=== PATIENT | male | born 1975 | race Hispanic/Latino ===

== ENCOUNTER 2019-12-06 06:39 | Outpatient (CLI) | payer BC, SELFPAY ==
--- NOTE | ~2019-12-06 | MR_ITS ---
EXAMINATION: MR shoulder LT wo con DATE: 12/06/2019 07:36 INDICATION: Left shoulder impingement syndrome presenting with left shoulder pain. TECHNIQUE: Magnetic resonance imaging (MRI) of the left shoulder was performed without intravenous co ntrast. Sequences included axial PD-weighted FS FSE, coronal oblique PD-weighted FS FSE, coronal obli que T2-weighted FS FSE, sagittal PD-weighted FS FSE, and sagittal T1-weighted SE. COMPARISON: None. FINDINGS: Coracoacromial arch: The acromion undersurface is curved in morphology (type II) anterior and lateral downsloping. Additio n there is a small anterior subacromial spur at the acromial insertion of the normal coracoacromial l igament. Minimal acromioclavicular osteoarthritis with chondral fissuring and tiny subarticular cyst at the anterior lateral head of the clavicle. Rotator cuff: The supraspinatus, infraspinatus and teres minor tendons are normal. The subscapularis tendon is norm al. Normal rotator cuff muscle bulk and signal. Biceps tendon, glenoid labrum and glenohumeral cartilage: Long head of the biceps tendon is normal. Glenoid labrum is normal. Glenohumeral cartilage is normal. Fluid: Physiologic amount of fluid in the glenohumeral joint and biceps tendon sheath. No loose osteochondra l bodies. Mildly increased fluid signal at the subacromial bursa consistent with mild bursitis. Bones: Normal marrow signal with no edema, fracture or pathologic marrow replacing process. IMPRESSION: 1. Mild subacromial/subdeltoid bursitis. 2. Minimal acromioclavicular osteoarthritis. Reviewed, dictated and finalized at location A.
== END 2019-12-06 06:40 | disposition home or self-care (01) ==
LOC: ANHIMG 06:41
PROVIDERS: PCP Nurse Practitioner Family; Visit Provider Orthopaedic Surgery
DX: M75.42 Impingement syndrome of left shoulder (principal); M75.52 Bursitis of left shoulder; M19.012 Primary osteoarthritis, left shoulder
CPT/HCPCS: 73221

== ENCOUNTER 2019-12-29 08:31 | Outpatient (CLI) | payer BC, SELFPAY ==
[2019-12-29 09:01] LABS: Basophils Percent Auto 0.9 % (0.2-1.2); Eosinophils Absolute Auto 0.1 K/mm3 (0-0.3); Eosinophils Percent Auto 1.7 % (0-4.4); Hematocrit 46.2 % (42.0-52.0); Hemoglobin 15.4 g/dL (14.0-18.0); Immature Granulocyte Absolute 0.03 K/mm3 (0.00-0.031); Immature Granulocyte Percent A 0.6 % (0-0.5); Lymphocytes Absolute Auto 1.26 K/mm3 (0.9-3.2); Mean Corpuscular HGB Conc 33.3 g/dl (32-36); Mean Corpuscular Hemoglobin 30.4 pg (26-34); Mean Corpuscular Volume 91.1 fl (80-100); Mean Platelet Volume 10.4 fl (7.4-10.4); Monocytes Absolute Auto 0.4 K/mm3 (0.1-0.6); Monocytes Percent Auto 8.2 % (2.6-8.5); Neutrophils Absolute Auto 2.9 K/mm3 (1.3-6.7); Neutrophils Percent Auto 61.6 % (45.5-73.1); Platelet Count Result 251 k/mm3 (150-375); Red Blood Count 5.07 M/mm3 (4.6-6.20); Red Cell Distribution Width 12.5 % (11.5-14.5); White Blood Count 4.7 K/mm3 (4.5-10.0)
[2019-12-29 09:04] LABS: Add Urine Microscopic? NO; Appearance Urine Clear (Clear); Bilirubin Urine Negative (Negative); Blood Urine Negative (Negative); Color Urine Straw (Yellow); Glucose Urine UA Negative (Negative); Ketones Urine Negative (Negative); Leukocyte Esterase Ur Negative LEU/UL (Negative); Nitrate Urine Negative (Negative); Protein Urine Negative (Negative); Specific Grav Ur 1.013 (1.001-1.035); Urobilinogen Urine Negative mg/dL (<2.0)
[2019-12-29 09:09] LABS: Hemoglobin A1C 5.8 % (<5.7)
[2019-12-29 09:14] LABS: Alanine Aminotransferase 23 U/L (4-50); Albumin Level 4.7 g/dL (3.5-5.1); Alkaline Phosphatase 70 U/L (38-126); Aspartate Amino Transferase 34 U/L (17-59); Bilirubin,Total 0.7 mg/dL (0.2-1.3); Blood Urea Nitrogen 14 mg/dL (9-20); Carbon Dioxide 29 mmol/L (22-30); Chloride 103 mmol/L (98-107); Cholesterol 156 mg/dL (0-200); Estimated Glomerular Filt Rate > 60; Glucose 107 mg/dL (75-110); HDL Direct 70 mg/dL; Potassium 4.4 mmol/L (3.4-5.0); Sodium 138 mmol/L (137-145); Triglycerides 55 mg/dL (<150); Uric Acid 5.5 mg/dL (3.5-8.5)
[2019-12-29 09:25] LABS: LDL Cholesterol Direct 71 mg/dL
[2019-12-29 09:50] LABS: Vitamin D 25 Hydroxy 72.1 ng/mL
[2019-12-29 10:20] LABS: Folic Acid 11.9 ng/mL (2.76->20)
[2020-01-02 14:55] LABS: Testosterone Free 91.3 pg/mL (35.0-155.0); Testosterone Total 519 ng/dL (250-1100)
== END 2019-12-29 08:32 | disposition home or self-care (01) ==
LOC: ANHLAB 08:41
PROVIDERS: PCP Nurse Practitioner Family; Visit Provider Nurse Practitioner Family
DX: E55.9 Vitamin D deficiency, unspecified (principal); E29.1 Testicular hypofunction; R73.09 Other abnormal glucose; E53.8 Deficiency of other specified B group vitamins; Z13.29 Encounter for screening for other suspected endocrine disorder; Z13.21 Encounter for screening for nutritional disorder; Z13.228 Encounter for screening for other metabolic disorders; Z13.0 Encounter for screening for diseases of the blood and blood-forming organs and certain disorders involving the immune mechanism; R53.83 Other fatigue
CPT/HCPCS: 36415; 80053; 80061; 81003; 82306; 82607; 82746; 83036; 84402; 84403; 84443; 84550; 85025

== ENCOUNTER 2020-01-29 00:19 | Outpatient (CLI) | payer BC, SELFPAY | END 2020-01-29 00:20 | disposition home or self-care (01) | LOC: ANHCOVIDDT 00:19 | PROVIDERS: PCP Nurse Practitioner Family; Visit Provider Orthopaedic Surgery | DX: Z01.812 Encounter for preprocedural laboratory examination (principal); Z20.828 Contact with and (suspected) exposure to other viral communicable diseases | CPT/HCPCS: 87635; C9803; U0003 ==

== ENCOUNTER 2020-02-01 00:47 | Day surgery (SDC) | payer BC, SELFPAY ==
[2020-01-26 10:48] VITALS: BMI 28.8
[2020-02-01] VITALS (8 sets, daily range): BP systolic 109–123; BP diastolic 72–85; PULSE 57–71; RESP 12–20; TEMP 36.2–36.3; O2SAT 92–100
--- NOTE | 2020-02-01 07:57 | ECG_ITS ---
Measurements Intervals [place] Rate: 63 P: 47 [place]: 172 QRS: 66 QRSD: 98 T: 4 QT: 397 QTc: 407 Interpretive Statements SINUS RHYTHM MINIMAL Q WAVES- INFERIOR LEADS BORDERLINE ST-T WAVE ABNORMALITY- INFERIOR LEADS BORDERLINE ECG Electronically Signed On 02-01-2020 8:36:38 CDT by Madi Pearson D.O.
--- NOTE | 2020-02-01 09:07 | WPDANESEPPF ---
Anes - Initial Pre Proc Eval Procedure: Operation Date: 02/01/20 10:00 Proposed Procedures p Left Shoulder Arthroscopy With Subacromial Decompression - Matt Piedra MD Date/Time: 02/01/20 09:07 Surgeon: Matt Piedra MD Pre Op Diagnosis: left shoulder impingement syndrome Patient Data Age: 44 Gender: M Height: 5 ft 11 in Weight: 94.8 kg Last Vital Signs Temp 36.2 C L 02/01/20 08:02 Pulse 66 02/01/20 08:02 Resp 20 02/01/20 08:02 BP 112/75 02/01/20 08:02 Pulse Ox 100 02/01/20 08:02 Allergies Allergy/AdvReac Type Severity Reaction Status Date / Time No Known Allergies Allergy Unverified 02/01/20 08:29 Home Medications Medication Instructions Recorded Confirmed Type cholecalciferol (vitamin D3) 50,000 mcg PO WEEKLY 01/26/20 02/01/20 History [Vitamin D3] cyanocobalamin (vitamin B-12) 1,000 mcg MONTHLY 01/26/20 02/01/20 History garlic 1,000 mg PO DAILY 01/26/20 02/01/20 History green tea leaf extract [Green Tea] 1 cap PO DAILY 01/26/20 02/01/20 History testosterone cypionate 200 mg DAILY 01/26/20 02/01/20 History Patient hx anesthesia problems: none Family hx anesthesia problems: none [facility] Past Medical History Medical History Impingement syndrome, shoulder, left Family History Family History Sibling Family history of malignant neoplasm Social History Social History Smoking status: Former smoker Smoking end date: 09/15/16 Alcohol intake: current Anes - Eval Final PreProcedure Day of Procedure 02/01/20 09:07 Patient weight: overweight Heart: regular rate and rhythm Lungs: clear to auscultation Airway: Mallampati scale class II Neurological: alert and oriented Last oral intake: >/= 8 hours ASA classification: II Emergent: no Anesthetic plan: proceed Anesthesia type and monitoring: general ETT and standard monitoring Informed Consent: The patient's anesthetic plan and its attendant risks and benefits were discussed with the patient/family/POA. Questions were solicited and answers provided to the satisfaction of the patient/family/POA.
[2020-02-01] MEDS: LACTATED RINGERS 1,000 ML 30 ML IV CONT ×2 (09:15→11:48)
--- NOTE | 2020-02-01 10:04 | PM.HPGS ---
History of Present Illness History of Present Illness Consent: Risks, benefits, and alternatives have been discussed and questions answered. Patient agrees to proceed with procedure. Chief complaint: left shoulder impingement syndrome Narrative: Nj Hogan is a 44 year old male complains of aching pain in the lateral deltoid area. Worse with overhead activities. Complains of weakness. Constant pain. Also night pain. Review of Systems Constitutional: Constitutional: Denies fever(s) Cardiovascular: Cardiovascular: Denies dyspnea Respiratory: Respiratory: Denies cough and Denies dyspnea PMFSH Past Medical History Medical History Impingement syndrome, shoulder, left Family History Family History Sibling Family history of malignant neoplasm Social History Social History Smoking status: Former smoker Smoking end date: 09/15/16 Alcohol intake: current Meds Home Medications and Allergies Home Medications Medication Instructions Recorded Confirmed Type cholecalciferol (vitamin D3) 50,000 mcg PO WEEKLY 01/26/20 02/01/20 History [Vitamin D3] cyanocobalamin (vitamin B-12) 1,000 mcg MONTHLY 01/26/20 02/01/20 History garlic 1,000 mg PO DAILY 01/26/20 02/01/20 History green tea leaf extract [Green Tea] 1 cap PO DAILY 01/26/20 02/01/20 History testosterone cypionate 200 mg DAILY 01/26/20 02/01/20 History Allergies Allergy/AdvReac Type Severity Reaction Status Date / Time No Known Allergies Allergy Unverified 02/01/20 08:29 Vital Signs Vital Signs - 24 hr 02/01/20 08:02 Temperature 36.2 C L Pulse Rate 66 Respiratory Rate 20 Blood Pressure 112/75 Pulse Oximetry 100 Exam Narrative: Exam Narrative: Normal gait and station. In no distress. No clinical deformity. Exquisite tenderness at the rotator cuff insertion. Active elevation 170?. Significant painful arc of motion. External rotation 80?, internal rotation L2. No instability. No apprehension. Positive Neer and Leon test. Speed's test negative. Supraspinatus strength 5/5, external rotation strength 5/5. Pain with resistance. No effusion. No warmth or erythema. No swelling. AC joint nontender. Cross-arm test negative. Negative belly press test. Elbow full range of motion. 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 Radial pulse palpable. Light touch sensation intact. Normal cervical spine motion without pain. Normal scapular mechanics. Assessment and Plan Assessment and plan (1) Impingement syndrome, shoulder, left: Code(s): M75.42 - Impingement syndrome of left shoulder Status: Acute Assessment and Plan: Severe persistent symptoms despite therapy and an injection. Proceed with arthroscopic subacromial decompression. Up to 12 weeks off physical work, due to restrictions.
--- NOTE | 2020-02-01 10:05 | WPDANESPNB ---
Anes - Peripheral Nerve Block Date/Time: 02/01/20 10:05 I have discussed with the patient/family/POA the placement of a peripheral nerve block for post-operative pain management, including associated risks, benefits, complications, and side effects. Alternative methods of post-operative analgesia were detailed. Questions were solicited and answers provided to the satisfaction of the patient/family/POA. Time-Out: A pre-procedural Time-Out was completed immediately before starting the procedure and confirmed: Patient Identification, Site, Procedure, Patient Position and the Availability of Requisite Equipment. Clinical Indications: Acute post-operative pain management requested by the operative surgeon. Nerve Block Insertion Note Anes-nerve block: interscalene left Patient position: supine Skin prep: chlorhexidine Needle: 22 gauge, stimulating, insulated echogenic needle. Needle length: 50 mm Technique: nerve stimulation lost at (mA) (0.5) and ultrasound Injectate: bupivacaine 0.5% with epi 5 mcg/ml (30) and dexamethasone (mg) (8) Observations: tolerated well Complications: none Procedure start time:: 954 Procedure end time:: 1004
[2020-02-01] MEDS: ceFAZolin 2 GM/D5W 50 ML 2 GM/50 ML BAG IVPB (10:30)
--- NOTE | 2020-02-01 12:27 | P.OP_ITS ---
Procedure Note - Detailed Date of procedure: 02/01/20 Pre-op diagnosis: left shoulder impingement syndrome Post-op diagnosis: same Procedure performed: 1. Arthroscopic subacromial decompression. Description of procedure: Significant impingement with a downsloping acromion was confirmed. Slight fraying of the bursal side of the supraspinatus was also seen. Decompression was performed with acromioplasty. The glenohumeral joint was normal. Anesthesia: GETA Surgeon: Matt Piedra MD Estimated blood loss (mL): 20 Complications: None Disposition: PACU Findings: Brief history: The patient complained of persistent pain with overhead and reaching activities. Pain persisted despite physical therapy and cortisone injections. The patient was given an interscalene block in the holding area. Preoperative antibiotics were given. The patient was brought to the operating room. Careful positioning in the beach chair was accomplished. The head neck were carefully positioned. A small bump was placed under the left shoulder. The shoulder was examined. The shoulder was prepped and draped in the usual sterile fashion. Standard posterior and anterior arthroscopic portals were established. The shoulder was inspected. The glenohumeral joint was entirely normal. Attention was turned to the subacromial space. Evidence of mild hyperemia of the rotator cuff was observed. The bursa was mildly thickened. A significant subacromial downsloping was observed. This coincided with minimal 5% superficial fraying of the bursal side of the supraspinatus. A complete bursectomy was performed. An accessory lateral portal was created. The acromion was clearly visualized. The coracoacromial ligament was released. Careful acromioplasty was performed utilizing views from both lateral and posterior. Loose bone fragments were carefully irrigated from the joint. The arthroscopic instruments were removed. The wounds were closed with interrupted 3-0 Monocryl suture followed by Steri- Strips. A sterile dressing was applied with a sling. The patient was extubated and brought to the recovery room in stable condition. There were no complications.
[2020-02-01] MEDS: ONDANSETRON INJ 4 MG/2 ML VIAL IV PUSH (12:35)
== END 2020-02-01 14:14 | disposition home or self-care (01) ==
PROVIDERS: PCP Nurse Practitioner Family; Visit Provider Orthopaedic Surgery
PROC: (CPT 29805; principal; 2020-02-01 10:00)
DX: M75.42 Impingement syndrome of left shoulder (principal); G89.18 Other acute postprocedural pain; Z87.891 Personal history of nicotine dependence
CPT/HCPCS: 29822; 64415; 93005; A4565; J0131; J0330; J0690; J1100; J1170; J2250; J2405; J2704; J2710; J3010; J7120

== ENCOUNTER 2021-07-09 03:16 | Day surgery (SDC) | payer BC, SELFPAY ==
[2021-06-28 13:24] VITALS: BMI 29.2
[2021-07-09 09:17] VITALS: BP 108/79; PULSE 62; RESP 18; TEMP 36.2; O2SAT 99
[2021-07-09] MEDS: LACTATED RINGERS 1,000 ML 150 ML IV CONT (09:24)
--- NOTE | 2021-07-09 09:33 | WPDGICN ---
Assessment and Plan Assessment and plan (1) History of colon polyps: Code(s): Z86.010 - Personal history of colonic polyps Status: Acute Assessment and Plan: Patient has had a prior history of colon polyps on to her 3 previous colonoscopies. Adenomas were removed. Plan is for surveillance colonoscopy now and at 3 year intervals in the future. (2) Family hx of colon cancer: Code(s): Z80.0 - Family history of malignant neoplasm of digestive organs Status: Acute Assessment and Plan: Patient has a family history of colon cancer in his sister as well as polyps in other sister and mother. Plan is for surveillance colonoscopy at 3-5 year intervals future. GI Consult Note Consult date/time: 07/09/21 09:33 HPI: Nj Hogan is a 46 year old male Presents for screening colonoscopy. Patient's current weight appetite bowel movements are normal. He denies abdominal pain. He has had no bleeding. He does have a history of colon polyps by our service in 2012 when an adenoma was removed from the colon. Patient reports he has had several colonoscopy since that time. Most recent colonoscopy 3 years ago also revealed colon polyps. Patient's family history is significant that his sister had colon cancer. His mother and a different sister have had colon polyps. An uncle may have had colon cancer as well. Patient presents today for neoplasia screening. Review of Systems Review of Systems: All systems reviewed & are unremarkable except as noted in HPI and below PMFSH Past Medical History Medical History (Updated 07/09/21 @ 09:35 by Marcial Rodriguez MD) Impingement syndrome, shoulder, left Family History Family History Sibling Family history of malignant neoplasm Social History Social History Smoking packs per day: 1 Smoking cigarettes per day: 20.0 Years smoked: 20 Smoking pack-years: 20.00 Smoking status: Former smoker Tobacco type: cigarettes Smoking end date: 09/15/16 Alcohol intake: current Alcohol use details: socially Substance use type: does not use Living arrangements: with family Meds Home Medications and Allergies Home Medications Medication Instructions Recorded Confirmed Type cholecalciferol (vitamin D3) 50,000 mcg PO WEEKLY 01/26/20 06/28/21 History [Vitamin D3] cyanocobalamin (vitamin B-12) 1,000 mcg MONTHLY 01/26/20 06/28/21 History testosterone cypionate 200 mg DAILY 01/26/20 06/28/21 History oxycodone-acetaminophen 1 - 2 tablet PO Q4-6H PRN #40 02/01/20 06/28/21 Rx tablet MDD 8 tablets Allergies Allergy/AdvReac Type Severity Reaction Status Date / Time No Known Allergies Allergy Verified 07/09/21 09:16 Vital Signs Vital Signs - 24 hr 07/09/21 09:17 Temperature 97.1 F L Pulse Rate 62 Respiratory Rate 18 Blood Pressure 108/79 Pulse Oximetry 99 Exam Narrative: Physical exam reveals patient to be alert. Vital signs stable. HEENT exam is unremarkable. Patient is anicteric. Lungs are clear to auscultation and percussion. Heart is without murmur or extra sounds. Abdominal exam bowel sounds are present soft nontender with no hepatosplenomegaly. Digital external rectal exam is normal.
--- NOTE | 2021-07-09 10:06 | WPDANESEPPF ---
Anes - Initial Pre Proc Eval Procedure: Operation Date: 07/09/21 10:00 Proposed Procedures p Screening Colonoscopy - Marcial Rodriguez MD Date/Time: 07/09/21 10:06 Surgeon: Marcial Rodriguez MD Pre Op Diagnosis: hx of colon polyps Patient Data Age: 46 Gender: M Height: 1.8 m Weight: 95.4 kg Last Vital Signs Temp 97.1 F L 07/09/21 09:17 Pulse 62 07/09/21 09:17 Resp 18 07/09/21 09:17 BP 108/79 07/09/21 09:17 Pulse Ox 99 07/09/21 09:17 Allergies Allergy/AdvReac Type Severity Reaction Status Date / Time No Known Allergies Allergy Verified 07/09/21 09:16 Home Medications Medication Instructions Recorded Confirmed Type cholecalciferol (vitamin D3) 50,000 mcg PO WEEKLY 01/26/20 06/28/21 History [Vitamin D3] cyanocobalamin (vitamin B-12) 1,000 mcg MONTHLY 01/26/20 06/28/21 History testosterone cypionate 200 mg DAILY 01/26/20 06/28/21 History oxycodone-acetaminophen 1 - 2 tablet PO Q4-6H PRN #40 02/01/20 06/28/21 Rx tablet MDD 8 tablets Patient hx anesthesia problems: none Family hx anesthesia problems: none Results Review: All pre-operative results and documents have been reviewed as part of the pre-operative evaluation. ON LICENSE OF [facility] Past Medical History Medical History (Updated 07/09/21 @ 09:35 by Marcial Rodriguez MD) Impingement syndrome, shoulder, left Family History Family History Sibling Family history of malignant neoplasm Social History Social History Smoking packs per day: 1 Smoking cigarettes per day: 20.0 Years smoked: 20 Smoking pack-years: 20.00 Smoking status: Former smoker Tobacco type: cigarettes Smoking end date: 09/15/16 Alcohol intake: current Alcohol use details: socially Substance use type: does not use Living arrangements: with family Anes - Eval Final PreProcedure Day of Procedure 07/09/21 10:06 Patient weight: overweight Heart: regular rate and rhythm Lungs: clear to auscultation Airway: Mallampati scale class II Neurological: alert and oriented Last oral intake: >/= 8 hours ASA classification: II Emergent: no Anesthetic plan: proceed Anesthesia type and monitoring: general GIVS and standard monitoring Results Review: All pre-operative results and documents have been reviewed as part of the pre-operative evaluation. Informed Consent: The patient's anesthetic plan and its attendant risks and benefits were discussed with the patient/family/POA. Questions were solicited and answers provided to the satisfaction of the patient/family/POA.
[2021-07-09 10:20] VITALS: BP 100/59; PULSE 71; RESP 24; O2SAT 96
[2021-07-09 10:30] VITALS: BP 104/72; PULSE 55; RESP 15; O2SAT 100
[2021-07-09 10:40] VITALS: BP 120/86; PULSE 56; RESP 15; O2SAT 100
== END 2021-07-09 10:47 | disposition home or self-care (01) ==
PROVIDERS: PCP Nurse Practitioner Family; Visit Provider Internal Medicine Gastroenterology
PROC: 0DJD8ZZ Inspection of Lower Intestinal Tract, Via Natural or Artificial Opening Endoscopic (ICD-10-PCS; CPT 45378; principal; 2021-07-09 10:00)
DX: Z12.11 Encounter for screening for malignant neoplasm of colon (principal); Z80.0 Family history of malignant neoplasm of digestive organs; K64.8 Other hemorrhoids; K57.30 Diverticulosis of large intestine without perforation or abscess without bleeding; K63.5 Polyp of colon; Z87.891 Personal history of nicotine dependence
CPT/HCPCS: 45380; 88305; J2704; J7120

== ENCOUNTER → 2023-04-11 14:44 | Outpatient (CLI) | payer BC, SELFPAY ==
--- NOTE | ~2023-04-11 | CT_ITS ---
EXAMINATION: CT abdomen pelvis wo/w con DATE: 04/11/2023 15:07 INDICATION: Periumbilical abdominal pain, rebound tenderness TECHNIQUE: Computed tomography (CT) of the abdomen and pelvis was performed without and subsequently with 100 CC Omnipaque 350 intravenous contrast. Automated exposure control and iterative reconstructi on technique were employed. Exam dose: 1607.31 mGy-cm total exam DLP. COMPARISON: None. FINDINGS: The lung bases are clear. Normal heart size. No pericardial or pleural effusion. The liver, gallbladder, bile ducts, pancreas, pancreatic duct, spleen, and adrenal glands and kidneys appear normal. No urinary tract calculus or hydroureteronephrosis. Normal caliber of the abdominal aorta. No intraperitoneal or retroperitoneal or pelvic mass lesion or adenopathy or ascites. The urinary bladder and prostate gland are unremarkable. Small sliding hiatal hernia. Normal appendix. Mild right and left colonic diverticulosis; no CT evidence of diverticulitis. No bow el obstruction, bowel wall thickening, pneumatosis or intraperitoneal free air is detected. Fat-containing umbilical hernia. There is mild increased density of the fat in the umbilical hernia w hich may indicate inflammation or vascular compromise. Included skeletal structures are unremarkable other than mild degenerative change of the thoracic and lumbar spine. IMPRESSION: Normal appendix No bowel obstruction or free air Diverticulosis of the right and left colon; no CT evidence of diverticulitis. Small fat-containing umbilical hernia; there is increased density of the fat which might indicate Reviewed, dictated and finalized at Location [facility]. Reviewed, dictated and finalized at location B. IMPRESSION: Normal appendix No bowel obstruction or free air Diverticulosis of the right and left colon; no CT evidence of diverticulitis. Small fat-containing umbilical hernia; there is increased density of the fat wh ich might indicate
== END ==
PROVIDERS: PCP Nurse Practitioner Family; Visit Provider Nurse Practitioner Family
DX: K57.30 Diverticulosis of large intestine without perforation or abscess without bleeding (principal)
CPT/HCPCS: 74178; Q9967